=== PATIENT | female | born 1950 | race Caucasian/White ===

== ENCOUNTER 2017-01-30 10:43 | Day surgery (SDC) | payer MEDICARE, BC ==
[~2017-01-30 10:43] MED LIST: Lactated Ringers 1,000 ML IV SCH; Sodium Chloride 0.9% 10 ML Syringe FLUSH PRN
[2017-01-30] MEDS ORDERED: Midazolam 1 MG/ML 2 ML SDV ONE ×2 (11:30→11:31)
[2017-01-30] MEDS ORDERED: fentaNYL 100 MCG/2 ML SDV ONE ×2 (11:30→11:31)
[2017-01-30] MEDS ORDERED: Propofol 200 MG/20 ML SDV ONE ×2 (11:30→11:31)
--- NOTE | 2017-01-30 11:32 | PCM.PN ---
- General Info Date of Service: 01/30/17 - Review of Systems Systems Review Comment:: 66 y/o female with history of colon polyps here for colonoscopy. Her last colonoscopy was 5 years ago. She is medically stable to proceed with no significant change in her health status since her last exam which is reviewed. The proposed colonoscopy is discussed with the patient. She agrees to proceed accepting risks. - Patient Data Vitals - Most Recent: Last Vital Signs Temp 97.9 F 01/30/17 10:52 Pulse 60 01/30/17 10:52 Resp 16 01/30/17 10:52 BP 133/71 01/30/17 10:52 Pulse Ox 100 01/30/17 10:52 Weight - Most Recent: 99.79 kg Med Orders - Current: Current Medications Lactated Ringer's (Ringers, Lactated) 1,000 mls @ 125 mls/hr IV ASDIRECTED [facility] Last Admin: 01/30/17 11:12 Dose: 125 mls/hr Sodium Chloride (Saline Flush) 10 ml FLUSH ASDIRECTED PRN PRN Reason: Keep Vein Open - Problem List Review Problem List Initiated/Reviewed/Updated: Yes - Assessment Assessment:: History of colon polyps - Plan Plan:: Colonoscopy
--- NOTE | 2017-01-30 12:18 | PCM.OPNOTE ---
- General Post-Op/Procedure Note Date of Surgery/Procedure: 01/30/17 Operative Procedure(s): Colonoscopy with Polypectomy Findings: Small Hepatic Flexure Polyp Pre Op Diagnosis: History of colon polyps Post-Op Diagnosis: colon polyp Anesthesia Technique: MAC Primary Surgeon: Gerard Holley Pathology: Hepatic Flexure Polyp Output, Urine Amount: 0 EBL in mLs: 0 Complications: None Condition: Good
[2017-01-30 13:57] VITALS: BP 141/69
--- NOTE | 2017-01-30 14:21 | OR ---
Date of Procedure: 01/30/2017 PREOPERATIVE DIAGNOSIS: History of colon polyps. POSTOPERATIVE DIAGNOSIS: Colon polyp. OPERATION PERFORMED: Colonoscopy with polypectomy. INDICATIONS FOR SURGERY: This 66-year-old female, who has a known history of colon polyps. She comes today for surveillance exam. FINDINGS: A single polyp was noted on today's exam. This is a 6 mm pedunculated polyp noted at the hepatic flexure. The remainder of the colon appears normal. PROCEDURE IN DETAIL: The patient was taken to the operating room. She was given intravenous sedation, and with her in the left lateral decubitus position, digital rectal exam was performed showing no rectal masses. The Olympus colonoscope was inserted into the rectum. Retroflexed examination of the rectal canal is performed. The scope was then carefully advanced under direct visualization through the colon until the hepatic flexure was reached. Here, the small polyp was identified. It is removed with a cautery snare and retrieved. The scope was then able to be advanced through the remaining length of the colon until the cecum is reached. Cecal acquisition is confirmed by noting the normal internal cecal anatomy including the appendiceal orifice and ileocecal valve. After examining the cecum, the scope was slowly withdrawn sequentially re-examining the colonic segments. Once the entire colon and rectum had been fully examined with no sign of any complication. The scope was removed. The patient was taken from the operating room in satisfactory condition. TOTAL BLOOD LOSS: Zero. COMPLICATIONS: None. PROGNOSIS: Good. JULIAN Holley MD /[id number] MTDIsaura
== END 2017-01-30 13:25 | disposition home or self-care (01) ==
LOC: LL.SDS 10:43
PROVIDERS: ATTEND Surgery
DX: Z12.11 Encounter for screening for malignant neoplasm of colon (principal); Z86.010 Personal history of colon polyps; K63.5 Polyp of colon; Z79.899 Other long term (current) drug therapy; Z90.49 Acquired absence of other specified parts of digestive tract; Z98.890 Other specified postprocedural states; G47.30 Sleep apnea, unspecified
CPT/HCPCS: 00810; 45385; J2250; J2704; J3010; J7120; 88305

== ENCOUNTER 2020-03-17 12:26 | Observation (INO) | payer MEDICARE, BC, OTHER ==
[2020-03-17 13:44] LABS: CHLORIDE,CL 104 mmol/L (98-107); SODIUM,NA 137 mmol/L (136-145)
--- NOTE | 2020-03-17 14:10 | EDM.PDOC ---
ED HPI GENERAL MEDICAL PROBLEM - General Chief Complaint: General Stated Complaint: weakness, fatigue Time Seen by Provider: 03/17/20 12:57 Source of Information: Reports: Patient History Limitations: Reports: No Limitations - History of Present Illness INITIAL COMMENTS - FREE TEXT/NARRATIVE: Patient referred here from [facility] due to ongoing issues after Covid infection. Positive Covid infection last month. Was cleared by the state last week when retested. Started to feel better overall but developed increasing fatigue several days ago. Noted to have patchy pneumonia consistent with Covid on xray, started on Z-pack. Has had two doses. Mild SOB. Coughs when taking deep breath. No fevers. No other HEENT changes. Very poor appetite, does not want to eat or drink. No chest pain/palpitations/dizziness reported. No emesis/loose stools/UTI complaints. No focal neuro changes/rashes. - Related Data Allergies Allergy/AdvReac Type Severity Reaction Status Date / Time No Known Allergies Allergy Verified 03/17/20 12:56 Home Meds: Home Meds Aspirin 81 mg PO DAILY 01/18/15 [History] Calcium Carbonate [Calcium] 1,200 mg PO DAILY 01/18/15 [History] Cholecalciferol (Vitamin D3) [Vitamin D3] 1,000 unit PO DAILY 01/18/15 [History] Niacin 500 mg PO BID 01/18/15 [History] Fish Oil/Peconic-3 Fatty Acids [Fish Oil 1,000 MG] 1 gm PO BID 01/29/17 [History] Ubidecarenone [Co Q-10] 100 mg PO BID 01/29/17 [History] Red Yeast Rice 1 cap PO BID 01/30/17 [History] Azithromycin 500 mg PO [id number] 03/17/20 [History] Past Medical History HEENT History: Reports: Cataract, Impaired Vision, Other (See Below) Other HEENT History: pt wears glasses Cardiovascular History: Reports: High Cholesterol, Other (See Below) Other Cardiovascular History: HX. Vasovagal episodes with IV placement when pt. was seen in ER Respiratory History: Reports: Sleep Apnea Gastrointestinal History: Reports: Cholelithiasis, Colon Polyp, GERD, Hiatal Hernia Other Gastrointestinal History: polyps Genitourinary History: Reports: None CORE LOADER History: Reports: Fibroids Musculoskeletal History: Reports: None Other Musculoskeletal History: dent's cyst left knee Neurological History: Reports: Seizure Psychiatric History: Reports: None Endocrine/Metabolic History: Reports: Obesity/BMI 30+, Vitamin D Deficiency Hematologic History: Reports: None Immunologic History: Reports: None Oncologic (Cancer) History: Reports: None Dermatologic History: Reports: Cellulitis - Past Surgical History HEENT Surgical History: Reports: Adenoidectomy, Tonsillectomy GI Surgical History: Reports: Cholecystectomy, Colonoscopy Social & Family History - Tobacco Use Smoking Status *Q: Never Smoker Second Hand Smoke Exposure: No - Caffeine Use Caffeine Use: Reports: Soda - Recreational Drug Use Recreational Drug Use: No ED ROS GENERAL - Review of Systems Review Of Systems: Comprehensive ROS is negative, except as noted in HPI. ED EXAM, GENERAL - Physical Exam Exam: See Below Exam Limited By: No Limitations General Appearance: Alert, No Apparent Distress, Obese Eye Exam: Bilateral Eye: EOMI, PERRL Ears: Hearing Grossly Normal Nose: No: Nasal Deformity, Nasal Swelling, Nasal Drainage Throat/Mouth: Normal Inspection, Normal Lips, Normal Voice, No Airway Compromise Head: Atraumatic, Normocephalic Neck: Normal Inspection, Supple, Non-Tender, Full Range of Motion Respiratory/Chest: No Respiratory Distress, No Accessory Muscle Use, Decreased Breath Sounds (throughout), Rales (faint, bilat, more so on left. ). No: Rhonchi, Wheezing, Stridor Cardiovascular: Regular Rate, Rhythm, No Murmur Peripheral Pulses: 2+: Radial (L), Radial (R) GI/Abdominal: Normal Bowel Sounds, Soft, Non-Tender, No Distention (Female) Exam: Deferred Rectal (Female) Exam: Deferred Back Exam: Normal Inspection Extremities: Normal Range of Motion, Non-Tender, Slow Capillary Refill. No: Susan's Sign Neurological: Alert, Oriented, Normal Cognition, No Motor/Sensory Deficits Psychiatric: Normal Affect, Normal Mood Skin Exam: Warm, Dry, Intact, Normal Color Course - Vital Signs Last Recorded V/S: Last Vital Signs Temp 37.0 C 03/17/20 12:58 Pulse 75 03/17/20 12:58 Resp 16 03/17/20 12:58 BP 134/84 03/17/20 12:58 Pulse Ox 95 03/17/20 12:58 - Orders/Labs/Meds Orders: Active Orders 24 hr Category Date Time Status Chest 2V [CR] Stat Exams 03/17/20 12:58 Taken PE Chest [Ang Chest] [CT] Stat Exams 03/17/20 14:01 Ordered UA W/MICROSCOPIC [URIN] Stat Lab 03/17/20 12:58 Ordered Labs: Laboratory Tests 03/17/20 03/17/20 03/17/20 Range/Units 13:14 13:14 13:14 WBC 8.1 (4.0-10.2) K/uL RBC 5.34 H (3.77-5.09) M/uL Hgb 15.9 H (11.7-15.5) g/dL Hct 47.2 H (34.0-46.0) % MCV 88.4 (84.0-98.0) fL MCH 29.8 (28.2-33.3) pg MCHC 33.7 (31.7-36.0) g/dL RDW 13.6 (11.2-14.1) % Plt Count 420 H D (150-350) K/uL Neut % (Auto) 55.9 (45.0-80.0) % Lymph % (Auto) 28.9 (10.0-50.0) % Jackson % (Auto) 10.7 (2.0-14.0) % Eos % (Auto) 4.0 (0.0-5.0) % Baso % (Auto) 0.5 (0.0-2.0) % Neut # (Auto) 4.50 (1.40-7.00) K/uL Lymph # (Auto) 2.33 (0.50-3.50) K/uL Jackson # (Auto) 0.86 (0.00-1.00) K/uL Eos # (Auto) 0.32 (0.00-0.50) K/uL Baso # (Auto) 0.04 (0.00-0.20) K/uL D-Dimer, Quantitative > 5000 H (0-400) ng/mL Sodium 137 (136-145) mmol/L Potassium 4.1 (3.5-5.1) mmol/L Chloride 104 (98-107) mmol/L Carbon Dioxide 24.5 (21.0-32.0) mmol/L BUN 12 (7-18) mg/dL Creatinine 0.80 (0.51-1.17) mg/dL Est Cr Clr Drug Dosing TNP Estimated GFR (MDRD) > 60 mL/min Glucose 107 H (74-106) mg/dL Lactic Acid (0.4-2.0) mmol/L Calcium 10.5 H (8.5-10.1) mg/dL Magnesium 2.0 (1.8-2.4) mg/dL Total Bilirubin 0.7 (0.2-1.0) mg/dL AST 44 H (15-37) U/L ALT 62 (12-78) U/L Alkaline Phosphatase 58 (46-116) IU/L NT-Pro-B Natriuret Pep 57 (0-125) pg/mL Total Protein 8.0 (6.4-8.2) g/dL Albumin 3.3 L (3.4-5.0) g/dL 03/17/20 Range/Units 13:14 WBC (4.0-10.2) K/uL RBC (3.77-5.09) M/uL Hgb (11.7-15.5) g/dL Hct (34.0-46.0) % MCV (84.0-98.0) fL MCH (28.2-33.3) pg MCHC (31.7-36.0) g/dL RDW (11.2-14.1) % Plt Count (150-350) K/uL Neut % (Auto) (45.0-80.0) % Lymph % (Auto) (10.0-50.0) % Jackson % (Auto) (2.0-14.0) % Eos % (Auto) (0.0-5.0) % Baso % (Auto) (0.0-2.0) % Neut # (Auto) (1.40-7.00) K/uL Lymph # (Auto) (0.50-3.50) K/uL Jackson # (Auto) (0.00-1.00) K/uL Eos # (Auto) (0.00-0.50) K/uL Baso # (Auto) (0.00-0.20) K/uL D-Dimer, Quantitative (0-400) ng/mL Sodium (136-145) mmol/L Potassium (3.5-5.1) mmol/L Chloride (98-107) mmol/L Carbon Dioxide (21.0-32.0) mmol/L BUN (7-18) mg/dL Creatinine (0.51-1.17) mg/dL Est Cr Clr Drug Dosing Estimated GFR (MDRD) mL/min Glucose (74-106) mg/dL Lactic Acid 1.0 (0.4-2.0) mmol/L Calcium (8.5-10.1) mg/dL Magnesium (1.8-2.4) mg/dL Total Bilirubin (0.2-1.0) mg/dL AST (15-37) U/L ALT (12-78) U/L Alkaline Phosphatase (46-116) IU/L NT-Pro-B Natriuret Pep (0-125) pg/mL Total Protein (6.4-8.2) g/dL Albumin (3.4-5.0) g/dL - Radiology Interpretation Free Text/Narrative:: Patchy peripheral changes consistent with Covid pneumonia - Re-Assessments/Exams Free Text/Narrative Re-Assessment/Exam: 03/17/20 14:13 Vital signs stable. O2 sats room air 95%. Slow cap refill/higher Hgb consistent with dehydration. Elevated DDimer. Admit observation for rehydration. CT to r/o PE. Departure - Departure Time of Disposition: 14:14 Disposition: Refer to Observation Condition: Good Clinical Impression: Pneumonia due to COVID-19 virus, Dehydration, Weakness, Elevated d-dimer - Discharge Information *PRESCRIPTION DRUG MONITORING PROGRAM REVIEWED*: Not Applicable *COPY OF PRESCRIPTION DRUG MONITORING REPORT IN PATIENT BG: Not Applicable Referrals: Rosa Lugo NP [Primary Care Provider] - Sepsis Event Note (ED) - Evaluation Sepsis Screening Result: No Definite Risk - Focused Exam Vital Signs: Vital Signs Temp Pulse Resp BP Pulse Ox 03/17/20 12:58 37.0 C 75 16 134/84 95 - Problem List & Annotations (1) Dehydration SNOMED Code(s): 97781022 Code(s): E86.0 - DEHYDRATION Status: Acute Priority: High Current Visit: Yes Annotation/Comment:: Slow cap refill. No appetite for food/water since Covid infection. Lost approx 10 pounds. Worse last few days. (2) Elevated d-dimer SNOMED Code(s): 236083233 Code(s): R79.89 - OTHER SPECIFIED ABNORMAL FINDINGS OF BLOOD CHEMISTRY Status: Acute Priority: High Current Visit: Yes Annotation/Comment:: CT to r/o PE ordered. (3) Pneumonia due to COVID-19 virus SNOMED Code(s): 901030487437378098 Code(s): U07.1 - COVID-19; J12.89 - OTHER VIRAL PNEUMONIA Status: Acute Priority: Medium Current Visit: Yes Annotation/Comment:: Has viral pneumonia from recent Covid infection. Improving cough. Denies worsening SOB. Started on Z-pack two days ago. No nebs/inhalers. (4) Weakness SNOMED Code(s): 21778034 Code(s): R53.1 - WEAKNESS Status: Acute Priority: Medium Current Visit: Yes Annotation/Comment:: Worsening weakness over last few days after feeling like she was improving from recent Covid infection. Lack of appetite may be contributing. (5) Elevated cholesterol SNOMED Code(s): 66923754 Code(s): E78.00 - PURE HYPERCHOLESTEROLEMIA, UNSPECIFIED Status: Acute Priority: Low Current Visit: No Annotation/Comment:: Being followed by PCP. - My Orders Last 24 Hours: My Active Orders 03/17/20 12:58 Chest 2V [CR] Stat UA W/MICROSCOPIC [URIN] Stat 03/17/20 14:01 PE Chest [Ang Chest] [CT] Stat - Assessment/Plan Admission H&P: Please use this note as an admission H&P Last 24 Hours: My Active Orders 03/17/20 12:58 Chest 2V [CR] Stat UA W/MICROSCOPIC [URIN] Stat 03/17/20 14:01 PE Chest [Ang Chest] [CT] Stat Assessment:: as above. Stable and suitable for general supervision. Plan: as above. Anticipate 1-2 day stay for IV hydration and assessment of patient's response. Initiate anticoagulation if PE identified.
[2020-03-17] MEDS ORDERED: Acetaminophen 325 MG Tab PO PRN (14:24)
[2020-03-17] MEDS ORDERED: Ondansetron 4 MG/2 ML SDV IVPUSH PRN (14:24)
[2020-03-17] MEDS ORDERED: Sodium Chloride 0.9% 1,000 ML IV ONE (14:29)
[2020-03-17] MEDS ORDERED: Iopamidol 755 Mg/ML 100 ML Bottle IVPUSH STA (14:32)
[2020-03-17] MEDS: Azithromycin 250 MG Tab PO SCH (16:01)
[2020-03-17] MEDS: Zinc (Zinc Gluconate) 50 MG Tab PO SCH (16:01)
[2020-03-17] MEDS: Albuterol 8 GM Inhaler INH SCH ×2 (16:02→19:54)
[2020-03-17] MEDS: Apixaban 5 MG Tab PO SCH (17:36)
[2020-03-17] MEDS: Sodium Chloride 0.9% 1,000 ML IV SCH (18:54)
[2020-03-18] MEDS: Sodium Chloride 0.9% 1,000 ML IV SCH ×2 (01:55→10:03)
[2020-03-18 08:02] LABS: CHLORIDE,CL 110 mmol/L (98-107); SODIUM,NA 143 mmol/L (136-145)
[2020-03-18] MEDS: Zinc (Zinc Gluconate) 50 MG Tab PO SCH (08:08)
[2020-03-18] MEDS: Apixaban 5 MG Tab PO SCH ×2 (08:08→18:10)
[2020-03-18] MEDS: Albuterol 8 GM Inhaler INH SCH ×4 (08:09→19:47)
--- NOTE | 2020-03-18 08:34 | PCM.PN ---
- General Info Date of Service: 03/18/20 Subjective Update: Pt feeling better but remains weak and SOB No appetite Functional Status: Reports: Pain Controlled - Review of Systems General: Reports: Weakness, Fatigue, Appetite Pulmonary: Reports: Shortness of Breath - Patient Data Vitals - Most Recent: Last Vital Signs Temp 99 F 03/18/20 01:58 Pulse 76 03/18/20 01:58 Resp 16 03/18/20 01:58 BP 123/62 03/18/20 01:58 Pulse Ox 93 L 03/18/20 01:58 Weight - Most Recent: 208 lb I&O - Last 24 Hours: Intake & Output 03/17/20 03/18/20 03/18/20 18:59 02:59 10:59 Intake Total 1511 Output Total 500 300 Balance -500 1211 Lab Results Last 24 Hours: Laboratory Results - last 24 hr 03/17/20 03/17/20 03/17/20 Range/Units 13:14 13:14 13:14 WBC 8.1 (4.0-10.2) K/uL RBC 5.34 H (3.77-5.09) M/uL Hgb 15.9 H (11.7-15.5) g/dL Hct 47.2 H (34.0-46.0) % MCV 88.4 (84.0-98.0) fL MCH 29.8 (28.2-33.3) pg MCHC 33.7 (31.7-36.0) g/dL RDW 13.6 (11.2-14.1) % Plt Count 420 H D (150-350) K/uL Neut % (Auto) 55.9 (45.0-80.0) % Lymph % (Auto) 28.9 (10.0-50.0) % Bates % (Auto) 10.7 (2.0-14.0) % Eos % (Auto) 4.0 (0.0-5.0) % Baso % (Auto) 0.5 (0.0-2.0) % Neut # (Auto) 4.50 (1.40-7.00) K/uL Lymph # (Auto) 2.33 (0.50-3.50) K/uL Bates # (Auto) 0.86 (0.00-1.00) K/uL Eos # (Auto) 0.32 (0.00-0.50) K/uL Baso # (Auto) 0.04 (0.00-0.20) K/uL D-Dimer, Quantitative > 5000 H (0-400) ng/mL Sodium 137 (136-145) mmol/L Potassium 4.1 (3.5-5.1) mmol/L Chloride 104 (98-107) mmol/L Carbon Dioxide 24.5 (21.0-32.0) mmol/L BUN 12 (7-18) mg/dL Creatinine 0.80 (0.51-1.17) mg/dL Est Cr Clr Drug Dosing TNP Estimated GFR (MDRD) > 60 mL/min Glucose 107 H (74-106) mg/dL Lactic Acid (0.4-2.0) mmol/L Calcium 10.5 H (8.5-10.1) mg/dL Magnesium 2.0 (1.8-2.4) mg/dL Total Bilirubin 0.7 (0.2-1.0) mg/dL AST 44 H (15-37) U/L ALT 62 (12-78) U/L Alkaline Phosphatase 58 (46-116) IU/L NT-Pro-B Natriuret Pep 57 (0-125) pg/mL Total Protein 8.0 (6.4-8.2) g/dL Albumin 3.3 L (3.4-5.0) g/dL Specimen Type Urine Color Urine Appearance Urine pH (5.0-9.0) Ur Specific [place] (1.005-1.030) Urine Protein (NEGATIVE) mg/dL Urine Glucose (UA) (NEGATIVE) mg/dL Urine Ketones (NEGATIVE) mg/dL Urine Occult Blood (NEGATIVE) Urine Nitrite (NEGATIVE) Urine Bilirubin (NEGATIVE) Urine Urobilinogen (0.2-1.0) E.U./dL Ur Leukocyte Esterase (NEGATIVE) Urine RBC /HPF Urine WBC /HPF Ur Epithelial Cells /LPF Urine Bacteria (NONE TO FEW) /HPF 03/17/20 03/17/20 03/18/20 Range/Units 13:14 17:30 07:30 WBC (4.0-10.2) K/uL RBC (3.77-5.09) M/uL Hgb (11.7-15.5) g/dL Hct (34.0-46.0) % MCV (84.0-98.0) fL MCH (28.2-33.3) pg MCHC (31.7-36.0) g/dL RDW (11.2-14.1) % Plt Count (150-350) K/uL Neut % (Auto) (45.0-80.0) % Lymph % (Auto) (10.0-50.0) % Bates % (Auto) (2.0-14.0) % Eos % (Auto) (0.0-5.0) % Baso % (Auto) (0.0-2.0) % Neut # (Auto) (1.40-7.00) K/uL Lymph # (Auto) (0.50-3.50) K/uL Bates # (Auto) (0.00-1.00) K/uL Eos # (Auto) (0.00-0.50) K/uL Baso # (Auto) (0.00-0.20) K/uL D-Dimer, Quantitative (0-400) ng/mL Sodium 143 (136-145) mmol/L Potassium 3.9 (3.5-5.1) mmol/L Chloride 110 H (98-107) mmol/L Carbon Dioxide 23.2 (21.0-32.0) mmol/L BUN 10 (7-18) mg/dL Creatinine 0.72 (0.51-1.17) mg/dL Est Cr Clr Drug Dosing 53.54 Estimated GFR (MDRD) > 60 mL/min Glucose 99 (74-106) mg/dL Lactic Acid 1.0 (0.4-2.0) mmol/L Calcium 8.7 D (8.5-10.1) mg/dL Magnesium (1.8-2.4) mg/dL Total Bilirubin 0.5 (0.2-1.0) mg/dL AST 31 (15-37) U/L ALT 43 (12-78) U/L Alkaline Phosphatase 41 L (46-116) IU/L NT-Pro-B Natriuret Pep (0-125) pg/mL Total Protein 6.1 L (6.4-8.2) g/dL Albumin 2.6 L (3.4-5.0) g/dL Specimen Type Urinblad Urine Color Yellow Urine Appearance Clear Urine pH 6.5 (5.0-9.0) Ur Specific [place] 1.010 (1.005-1.030) Urine Protein Negative (NEGATIVE) mg/dL Urine Glucose (UA) Negative (NEGATIVE) mg/dL Urine Ketones Negative (NEGATIVE) mg/dL Urine Occult Blood Trace-intact H (NEGATIVE) Urine Nitrite Negative (NEGATIVE) Urine Bilirubin Negative (NEGATIVE) Urine Urobilinogen 0.2 (0.2-1.0) E.U./dL Ur Leukocyte Esterase Negative (NEGATIVE) Urine RBC 0-5 /HPF Urine WBC 0-5 /HPF Ur Epithelial Cells Few /LPF Urine Bacteria Rare (NONE TO FEW) /HPF 03/18/20 Range/Units 07:30 WBC 7.1 (4.0-10.2) K/uL RBC 4.38 (3.77-5.09) M/uL Hgb 13.0 D (11.7-15.5) g/dL Hct 39.4 (34.0-46.0) % MCV 90.0 (84.0-98.0) fL MCH 29.7 (28.2-33.3) pg MCHC 33.0 (31.7-36.0) g/dL RDW 13.4 (11.2-14.1) % Plt Count 377 H (150-350) K/uL Neut % (Auto) 56.7 (45.0-80.0) % Lymph % (Auto) 27.6 (10.0-50.0) % Bates % (Auto) 11.3 (2.0-14.0) % Eos % (Auto) 3.8 (0.0-5.0) % Baso % (Auto) 0.6 (0.0-2.0) % Neut # (Auto) 4.05 (1.40-7.00) K/uL Lymph # (Auto) 1.97 (0.50-3.50) K/uL Bates # (Auto) 0.81 (0.00-1.00) K/uL Eos # (Auto) 0.27 (0.00-0.50) K/uL Baso # (Auto) 0.04 (0.00-0.20) K/uL D-Dimer, Quantitative (0-400) ng/mL Sodium (136-145) mmol/L Potassium (3.5-5.1) mmol/L Chloride (98-107) mmol/L Carbon Dioxide (21.0-32.0) mmol/L BUN (7-18) mg/dL Creatinine (0.51-1.17) mg/dL Est Cr Clr Drug Dosing Estimated GFR (MDRD) mL/min Glucose (74-106) mg/dL Lactic Acid (0.4-2.0) mmol/L Calcium (8.5-10.1) mg/dL Magnesium (1.8-2.4) mg/dL Total Bilirubin (0.2-1.0) mg/dL AST (15-37) U/L ALT (12-78) U/L Alkaline Phosphatase (46-116) IU/L NT-Pro-B Natriuret Pep (0-125) pg/mL Total Protein (6.4-8.2) g/dL Albumin (3.4-5.0) g/dL Specimen Type Urine Color Urine Appearance Urine pH (5.0-9.0) Ur Specific [place] (1.005-1.030) Urine Protein (NEGATIVE) mg/dL Urine Glucose (UA) (NEGATIVE) mg/dL Urine Ketones (NEGATIVE) mg/dL Urine Occult Blood (NEGATIVE) Urine Nitrite (NEGATIVE) Urine Bilirubin (NEGATIVE) Urine Urobilinogen (0.2-1.0) E.U./dL Ur Leukocyte Esterase (NEGATIVE) Urine RBC /HPF Urine WBC /HPF Ur Epithelial Cells /LPF Urine Bacteria (NONE TO FEW) /HPF Med Orders - Current: Current Medications Acetaminophen (Tylenol) 650 mg PO Q4H PRN PRN Reason: Pain (Mild 1-3)/fever Albuterol (Ventolin Hfa) 0 gm INH QID [facility] Last Admin: 03/18/20 08:09 Dose: 1 puff Documented by: Apixaban (Eliquis) 10 mg PO BID [facility] Last Admin: 03/18/20 08:08 Dose: 10 mg Documented by: Azithromycin (Zithromax) 500 mg PO DAILY@1500 LEN Stop: 03/21/20 15:01 Last Admin: 03/17/20 16:01 Dose: 500 mg Documented by: Sodium Chloride (Normal Saline) 1,000 mls @ 125 mls/hr IV ASDIRECTED [facility] Last Admin: 03/18/20 01:55 Dose: 125 mls/hr Documented by: Ondansetron HCl (Zofran) 4 mg IVPUSH Q6H PRN PRN Reason: Nausea/Vomiting Zinc Gluconate (Zinc) 50 mg PO DAILY [facility] Last Admin: 03/18/20 08:08 Dose: 50 mg Documented by: Discontinued Medications Sodium Chloride (Normal Saline) 1,000 mls @ 250 mls/hr IV .BOLUS ONE Stop: 03/17/20 18:28 Last Admin: 03/17/20 14:34 Dose: 250 mls/hr Documented by: Iopamidol ([id number] (76%)) 100 ml IVPUSH ONETIME STA Stop: 03/17/20 14:33 Last Admin: 03/17/20 15:04 Dose: 100 ml Documented by: - Exam Quality Assessment: Supplemental Oxygen Lungs: Decreased Breath Sounds Cardiovascular: Regular Rate Sepsis Event Note - Evaluation Sepsis Screening Result: No Definite Risk - Focused Exam Vital Signs: Vital Signs Temp Pulse Resp BP Pulse Ox 03/18/20 01:58 99 F 76 16 123/62 93 L - Problem List Review Problem List Initiated/Reviewed/Updated: Yes - Assessment Assessment:: Imp: Covid pneumonia with PE - Plan Plan:: Paln: Continue care
[2020-03-18] MEDS: Azithromycin 250 MG Tab PO SCH (15:51)
[2020-03-18] MEDS: Sodium Chloride 0.9% 10 ML Syringe FLUSH SCH (19:47)
[2020-03-19] MEDS: Apixaban 5 MG Tab PO SCH ×2 (07:21→17:17)
[2020-03-19] MEDS: Zinc (Zinc Gluconate) 50 MG Tab PO SCH (07:22)
[2020-03-19] MEDS: Sodium Chloride 0.9% 10 ML Syringe FLUSH SCH ×2 (07:22→19:29)
[2020-03-19] MEDS: Albuterol 8 GM Inhaler INH SCH ×4 (07:22→19:30)
--- NOTE | 2020-03-19 09:58 | PCM.PN ---
- General Info Date of Service: 03/19/20 Admission Dx/Problem (Free Text): Feels better but remains weak States she felt good earlier this Am and now is very tired and weak - Review of Systems General: Reports: Weakness Pulmonary: Reports: Shortness of Breath Cardiovascular: Reports: No Symptoms Gastrointestinal: Reports: No Symptoms Musculoskeletal: Reports: No Symptoms Neurological: Reports: No Symptoms - Patient Data Vitals - Most Recent: Last Vital Signs Temp 98 F 03/19/20 07:20 Pulse 73 03/19/20 07:20 Resp 20 03/19/20 07:20 BP 135/72 03/19/20 07:20 Pulse Ox 94 L 03/19/20 07:20 Weight - Most Recent: 210 lb I&O - Last 24 Hours: Intake & Output 03/18/20 03/19/20 03/19/20 18:59 02:59 10:59 Intake Total 2975 300 Output Total 600 1200 400 Balance 2375 -1200 -100 Med Orders - Current: Current Medications Acetaminophen (Tylenol) 650 mg PO Q4H PRN PRN Reason: Pain (Mild 1-3)/fever Albuterol (Ventolin Hfa) 0 gm INH QID [facility] Last Admin: 03/19/20 07:22 Dose: 2 puff Documented by: Apixaban (Eliquis) 10 mg PO BID [facility] Last Admin: 03/19/20 07:21 Dose: 10 mg Documented by: Azithromycin (Zithromax) 500 mg PO DAILY@1500 [facility] Stop: 03/21/20 15:01 Last Admin: 03/18/20 15:51 Dose: 500 mg Documented by: Ondansetron HCl (Zofran) 4 mg IVPUSH Q6H PRN PRN Reason: Nausea/Vomiting Sodium Chloride (Saline Flush) 10 ml FLUSH [facility] Last Admin: 03/19/20 07:22 Dose: 10 ml Documented by: Zinc Gluconate (Zinc) 50 mg PO DAILY [facility] Last Admin: 03/19/20 07:22 Dose: 50 mg Documented by: Discontinued Medications Sodium Chloride (Normal Saline) 1,000 mls @ 250 mls/hr IV .BOLUS ONE Stop: 03/17/20 18:28 Last Admin: 03/17/20 14:34 Dose: 250 mls/hr Documented by: Sodium Chloride (Normal Saline) 1,000 mls @ 125 mls/hr IV ASDIRECTED LEN Last Infusion: 03/18/20 16:13 Dose: 125 mls/hr Documented by: Iopamidol ([id number] (76%)) 100 ml IVPUSH ONETIME STA Stop: 03/17/20 14:33 Last Admin: 03/17/20 15:04 Dose: 100 ml Documented by: - Exam General: Alert, Oriented Lungs: Clear to Auscultation, Decreased Breath Sounds Cardiovascular: Regular Rate GI/Abdominal Exam: Soft, Non-Tender Extremities: No Pedal Edema Psy/Mental Status: Alert, Normal Affect, Normal Mood Sepsis Event Note - Evaluation Sepsis Screening Result: No Definite Risk - Focused Exam Vital Signs: Vital Signs Temp Pulse Resp BP Pulse Ox 03/19/20 07:20 98 F 73 20 135/72 94 L 03/19/20 02:00 98.1 F 80 16 148/80 H 94 L - Problem List Review Problem List Initiated/Reviewed/Updated: Yes - My Orders Last 24 Hours: My Active Orders 03/18/20 20:00 Sodium Chloride 0.9% [Saline Flush] 10 ml FLUSH - Assessment Assessment:: Imp: Covid pneumonia with PE - Plan Plan:: Paln: Continue care
[2020-03-19] MEDS: Azithromycin 250 MG Tab PO SCH (15:30)
[2020-03-20] MEDS: Albuterol 8 GM Inhaler INH SCH (07:15)
[2020-03-20] MEDS: Apixaban 5 MG Tab PO SCH (07:15)
[2020-03-20] MEDS: Zinc (Zinc Gluconate) 50 MG Tab PO SCH (07:15)
[2020-03-20] MEDS: Sodium Chloride 0.9% 10 ML Syringe FLUSH SCH (07:16)
[2020-03-20 07:29] VITALS: BP 125/52; PULSE 69
--- NOTE | 2020-03-20 08:12 | PCM.DCSUM1 ---
Discharge Summary - Hospital Course Brief History: Pt admitted with Covid pneumonia and PE Startted on Eliquis Feels better and ready for discharge Diagnosis: Stroke: No - Discharge Data Discharge Date: 03/20/20 Discharge Disposition: Home, Self-Care 01 Condition: Good - Referral to Home Health Primary Care Physician: Rosa Lugo NP - Discharge Diagnosis/Problem(s) (1) Pulmonary embolism SNOMED Code(s): 82151776 ICD Code: I26.99 - OTHER PULMONARY EMBOLISM WITHOUT ACUTE COR PULMONALE Status: Acute Current Visit: Yes (2) Pneumonia due to COVID-19 virus SNOMED Code(s): 127295831515033143 ICD Code: U07.1 - COVID-19; J12.89 - OTHER VIRAL PNEUMONIA Status: Acute Priority: Medium Current Visit: Yes Problem Details: Has viral pneumonia from recent Covid infection. Improving cough. Denies worsening SOB. Started on Z-pack two days ago. No nebs/inhalers. - Patient Instructions Diet: Usual Diet as Tolerated Activity: As Tolerated Driving: May Drive Today Showering/Bathing: May Shower Notify Provider of: Fever, Increased Pain - Discharge Plan *PRESCRIPTION DRUG MONITORING PROGRAM REVIEWED*: Not Applicable *COPY OF PRESCRIPTION DRUG MONITORING REPORT IN PATIENT BG: Not Applicable Prescriptions/Med Rec: Apixaban [Eliquis] 10 mg PO BID #20 tablet Home Medications: Home Meds Aspirin 81 mg PO DAILY 01/18/15 [History] Calcium Carbonate [Calcium] 1,200 mg PO DAILY 01/18/15 [History] Cholecalciferol (Vitamin D3) [Vitamin D3] 1,000 unit PO DAILY 01/18/15 [History] Niacin 500 mg PO BID 01/18/15 [History] Fish Oil/Smiley-3 Fatty Acids [Fish Oil 1,000 MG] 1 gm PO BID 01/29/17 [History] Ubidecarenone [Co Q-10] 100 mg PO BID 01/29/17 [History] Red Yeast Rice 1 cap PO BID 01/30/17 [History] Azithromycin 500 mg PO [id number] 03/17/20 [History] Apixaban [Eliquis] 10 mg PO BID #20 tablet 03/20/20 [Rx] Patient Handouts: Pulmonary Embolism, Apixaban oral tablets Forms: ED Department Discharge Referrals: Rosa Lugo NP [Primary Care Provider] - - Discharge Summary/Plan Comment DC Time >30 min.: No - General Info Date of Service: 03/20/20 - Review of Systems Pulmonary: Reports: Shortness of Breath Cardiovascular: Reports: No Symptoms Gastrointestinal: Reports: No Symptoms Musculoskeletal: Reports: No Symptoms - Patient Data Vitals - Most Recent: Last Vital Signs Temp 97.4 F 03/20/20 07:28 Pulse 69 03/20/20 07:28 Resp 14 03/20/20 07:28 BP 125/52 L 03/20/20 07:28 Pulse Ox 92 L 03/20/20 07:28 Weight - Most Recent: 210 lb I&O - Last 24 hours: Intake & Output 03/19/20 03/20/20 03/20/20 18:59 02:59 10:59 Intake Total 300 Balance 300 Med Orders - Current: Current Medications Acetaminophen (Tylenol) 650 mg PO Q4H PRN PRN Reason: Pain (Mild 1-3)/fever Albuterol (Ventolin Hfa) 0 gm INH QID [facility] Last Admin: 03/20/20 07:15 Dose: 1 puff Documented by: Apixaban (Eliquis) 10 mg PO BID [facility] Last Admin: 03/20/20 07:15 Dose: 10 mg Documented by: Azithromycin (Zithromax) 500 mg PO DAILY@1500 [facility] Stop: 03/21/20 15:01 Last Admin: 03/19/20 15:30 Dose: 500 mg Documented by: Ondansetron HCl (Zofran) 4 mg IVPUSH Q6H PRN PRN Reason: Nausea/Vomiting Sodium Chloride (Saline Flush) 10 ml FLUSH [facility] Last Admin: 03/20/20 07:16 Dose: 10 ml Documented by: Zinc Gluconate (Zinc) 50 mg PO DAILY [facility] Last Admin: 03/20/20 07:15 Dose: 50 mg Documented by: Discontinued Medications Sodium Chloride (Normal Saline) 1,000 mls @ 250 mls/hr IV .BOLUS ONE Stop: 03/17/20 18:28 Last Admin: 03/17/20 14:34 Dose: 250 mls/hr Documented by: Sodium Chloride (Normal Saline) 1,000 mls @ 125 mls/hr IV ASDIRECTED [facility] Last Infusion: 03/18/20 16:13 Dose: 125 mls/hr Documented by: Iopamidol (Isovue-370 (76%)) 100 ml IVPUSH ONETIME STA Stop: 03/17/20 14:33 Last Admin: 03/17/20 15:04 Dose: 100 ml Documented by: - Exam Neck: Reports: Supple Lungs: Reports: Decreased Breath Sounds Cardiovascular: Reports: Regular Rate Extremities: No Pedal Edema
== END 2020-03-20 08:37 | disposition home or self-care (01) ==
LOC: LL.ED 12:26 → LL.MS 14:19 → UNDOADMOB 14:19 → LL.MS 14:24
PROVIDERS: ADMIT Emergency Medicine; ATTEND Family Medicine
DX: I26.99 Other pulmonary embolism without acute cor pulmonale (principal); U07.1 COVID-19; J12.89 Other viral pneumonia; E66.9 Obesity, unspecified; E55.9 Vitamin D deficiency, unspecified; R79.89 Other specified abnormal findings of blood chemistry; E86.0 Dehydration; E78.00 Pure hypercholesterolemia, unspecified; Z79.82 Long term (current) use of aspirin; Z79.899 Other long term (current) drug therapy; Z68.41 Body mass index [BMI] 40.0-44.9, adult; R06.02 Shortness of breath
CPT/HCPCS: 36415; 71046; 71275; 80053; 81001; 83605; 83735; 83880; 85025; 85379; 94640; 96360; 96361; 99217; 99219; 99225; 99285-25; A9270-GY; G0378; J7030; Q9967

== ENCOUNTER → 2022-03-18 | Day surgery (SDC) | payer MEDICARE, BC ==
[~2022-03-18] MED LIST changes: -Lactated Ringers 1,000 ML IV SCH; +Propofol 200 MG/20 ML SDV ONE; -Sodium Chloride 0.9% 10 ML Syringe FLUSH PRN; +Succinylcholine 200 MG/10 ML MDV ONE
== END ==
LOC: LL.SDS 06:00
PROVIDERS: ATTEND Surgery
DX: Z12.11 Encounter for screening for malignant neoplasm of colon (principal); E78.2 Mixed hyperlipidemia; E66.9 Obesity, unspecified; L81.9 Disorder of pigmentation, unspecified; Z86.16 Personal history of COVID-19; Z90.49 Acquired absence of other specified parts of digestive tract; Z98.890 Other specified postprocedural states; Z68.42 Body mass index [BMI] 45.0-49.9, adult; Z86.010 Personal history of colon polyps; Z79.899 Other long term (current) drug therapy; Z88.8 Allergy status to other drugs, medicaments and biological substances; Z88.1 Allergy status to other antibiotic agents
CPT/HCPCS: G0105; J0330